=== PATIENT | female | born 2000 | race Caucasian/White ===

== ENCOUNTER → 2018-06-22 | Outpatient (CLI) | payer OTHER ==
[~2018-06-22] MED LIST: ARIP10TA33 PO; ARIP5TAB13 PO; BIRTH CONTROL; FLUO40CA2 PO; TRAZ50TA66 PO
== END | disposition home or self-care (01) ==
LOC: CFH 08:51
PROVIDERS: ATTEND Internal Medicine Cardiovascular Disease
DX: I37.1 Nonrheumatic pulmonary valve insufficiency (principal)
CPT/HCPCS: 78452; 93017; 93306; A9502